=== PATIENT | male | born 1995 | race Caucasian/White ===

== ENCOUNTER 2022-09-20 21:57 | Emergency (ER) | payer OTHER, SELFPAY ==
[2022-09-20 21:59] VITALS: BP 148/99; PULSE 75; RESP 16; TEMP 36.1; O2SAT 99; BMI 30.9
--- NOTE | 2022-09-20 22:07 | EDS_ITS ---
HPI History of Present Illness Chief Complaint: Upper Extremity Injury PFS PFS Medical History no medical history Home Medications oxycodone 5 mg capsule 5 mg PO Q6H PRN pain 3 days #12 caps 09/20/22 [Rx Last Taken Unknown] Allergy/AdvReac Type Severity Reaction Status Date / Time No Known Allergies Allergy Verified 09/20/22 21:59 Surgical History no surgical history Social History Smoking Status: Former smoker EXAM Physical Exam Const Vital Signs: 09/20/22 21:59 Temperature 96.9 F L Temperature Source Temporal Pulse Rate 75 Respiratory Rate 16 Blood Pressure 148/99 H Blood Pressure Mean 115 Pulse Ox 99 [facility] [place] [facility] [place] Medical decision making narrative: HISTORY OF PRESENT ILLNESS: 26-year-old male here for left wrist injury. Patient states while playing baseball he ran into another player injuring his left wrist. He further states he has had no prior injuries to the left wrist. Denies numbness tingling or loss sensation. No swelling over the distal radius. He states the pain is worse with movement and palpation. He denies elbow or shoulder pain. There is no head trauma reported. REVIEW OF SYSTEMS: Pertinent positives: Left wrist pain Pertinent negatives: Numbness, tingling, loss of sensation PHYSICAL EXAM: Nursing triage notes reviewed, Vital signs reviewed Constitutional: please see mdm Lungs: Clear to auscultation, No wheezing or rales. No increased work of breathing, no conversational dyspnea, no accessory muscle use, no nasal flaring. No respiratory distress noted Heart: Regular rate and rhythm, No murmurs, No rubs and No gallops, 2+ distal pulses (radial, femoral, posterior tibial) in all extremities Extremities: No edema Neuro: Intact 4/5 strength (weakness secondary to pain) with ok sign (median), intact finger abduction (ulnar) intact wrist extension (radial n). Intact sensation in the radial, ulnar, and median nerve distributions. Skin: No rash or lesions noted MEDICAL DECISION MAKING: Chief Complaint: Left wrist pain External records reviewed: No recent advanced imaging of the involved extremity Factors affecting care: None Social determinants of health: None History obtained from others: Consults: None ALL IMAGES (IF OBTAINED) HAVE BEEN PERSONALLY REVIEWED AND INTERPRETED BY MYSELF. MDM Narrative: Patient was hemodynamically stable, afebrile, nontoxic-appearing. Neurovascular intact left upper extremity. I considered the following differential diagnosis: Wrist fracture, dislocation, contusion I obtained an x-ray of the left wrist. X-ray was interpreted by myself. X-ray revealed distal radius fracture. Fractures not significantly displaced angulated or comminuted. Patient was placed in a sugar-tong splint. He was given appropriate pain control at home and close orthopedic follow-up. His extremity was neurovascular tact prior to and after splinting. The patient and/or family, caregivers express understanding. The patient and/or family, caregivers agrees with the plan. Total critical care time today provided was at least 0 minutes. This excludes separately billable procedures. Critical care time (if documented) is secondary to the patient having high probability of clinically significant/life threat ening deterioration in the patient's condition which required my urgent intervention. Shared decision making: I will have a discussion with the patient and or visitors regarding risk/benefits of further testing or admission. They will be made aware of of the risk/benefits inherent in this decision they will be given the opportunity to voice understanding. Procedures Upper Extremity Splints Upper Extremity Splint: Orthoglass Splint Fabrication: Pre-fabricated Location: Left Discharge Plan Triage Chief Complaint: Upper Extremity Injury ED Provider: Jan Mantilla Dx/Rx/DC Orders Instructions: Forearm Fracture Ch Prescriptions: New oxycodone 5 mg capsule 5 mg PO Q6H PRN (Reason: pain) 3 Days Qty: 12 0RF Primary Care Provider: Care Physician,No Primary Referrals: Chaim Lang MD [Med Staff - Active Staff] - Activity Restrictions/Additional Instructions: Thank you for trusting us with your care today! Please take Tylenol (2 pills, 650 mg), ibuprofen (2 pills, 400 mg) every 6 hours as needed for pain and fever control. If this does not adequately control your pain please take oxycodone as been prescribed. Please return to the emergency department if your symptoms change or worsen. Specifically if develop loss of sensation, coolness to touch, black or blue discoloration of the involved extremity or if your pain is not controlled by the above regiment. Please follow with the orthopedic surgeon that is been provided for you for further outpatient evaluation and management.
[2022-09-20] MEDS: Acetaminophen 325 MG Tablet 650 MG PO (22:17)
--- NOTE | 2022-09-20 22:20 | RAD_ITS ---
INDICATION: wrist EXAMINATION/TECHNIQUE: X-RAY - LEFT XR Wrist Min 3 Views 3 VIEWS COMPARISON: None FINDINGS: SOFT TISSUES: Radial wrist edema. No soft tissue swelling or gas. No radiopaque foreign body. BONES/JOINTS: Nondisplaced transverse fracture through the radial styloid. Normal alignment. Preservation of the joint space.. No sclerotic or destructive changes observed. RAD/Wrist min 3 Views IMPRESSION: Nondisplaced radial styloid fracture. Electronically Signed: Antonio Becerril MD at 22:59 EDT ,
[2022-09-20 23:18] VITALS: RESP 16
== END 2022-09-20 23:18 | disposition home or self-care (01) ==
PROVIDERS: Emergency Provider Emergency Medicine; Visit Provider Emergency Medicine
DX: S52.502A Unspecified fracture of the lower end of left radius, initial encounter for closed fracture (principal); Z87.891 Personal history of nicotine dependence; Y93.64 Activity, baseball
CPT/HCPCS: 73110; 99283

== ENCOUNTER 2022-09-26 06:06 | Day surgery (SDC) | payer OTHER, SELFPAY ==
[2022-09-26] VITALS (7 sets, daily range): BP systolic 106–135; BP diastolic 64–92; PULSE 69–82; RESP 14–16; TEMP 36.5–37.2; O2SAT 91–98; BMI 31.5
--- NOTE | 2022-09-26 07:04 | HP.PCM_ITS ---
HPI - General HPI Narrative ELIZABETH CABRERA, is a 26 M who presents for open reduction internal fixation of a left distal radius fracture. This is a repairer hairspring type fracture. We discussed pros and cons risks and benefits of going ahead with the surgery. Possible risks include but not limited to stiffness neurovascular injury and other com plications. We discussed these in the office as well. Narcotic counseling done. Patient wished to proceed I marked the left wrist he had no further questions or concerns. No changes to his history and physical exam. MR#: [id number] Acct: [id number] Name:? ELIZABETH CABRERA Rep #: [id number] : 1995 ? ? Provider: Dr. Chaim Lang MD Age/Sex:? 26/M ? ? Location: [facility] – [place] Status: Signed with Addenda ADDENDUM by Dr. Chaim Lang MD on 09/24/22 at 1020 Assessment and Plan Assessment and Plan (1) Distal radial fracture: ?Status:?Acute ?Plan: Also gave EXOS splint for now for comfort. should ice this down for swelling. 09/24/22 1020 <Electronically signed by Chaim Lang MD> Date Chaim Lang MD cc: ? ~* Signed Intake Vital Signs ? 09/20/2320:59 09/24/2308:57 Height 5 ft 11 in 5 ft 11 in Weight: 222 lb 225 lb BMI 30.9 31.4 BP 148/99 H ? Respiration 16 ? Pulse 75 ? Temp 96.9 F L ? Temp Source Temporal ? Pulse Oximetry (%) 99 ? Intake Visit Reasons:?LEFT RADIUS Is patient in pain?: Yes (Left arm) Pain scale (1-10): 1 Allergies No Known Allergies Allergy (Verified 09/24/22 09:57) Medications oxycodone 5 mg capsule 5 mg PO Q6H PRN pain 3 days #12 caps 09/20/22 [Rx Confirmed 09/24/22] acetaminophen 500 mg oral powder packet (Tylenol Extra Strength) 500 mg PO Q6H PRN 09/24/22 [History Confirmed 09/24/22] PFSH Social History? Smoking Status:? Former smoker Smokeless tobacco user:? chewing tobacco alcohol intake:? current alcohol intake frequency: a few times a week HPI LEFT RADIUS Details: Parts of this documentation were recorded by a scribe, this documentation accurately reflects the service provided and the decisions made by me, Dr. Chaim Lang MD 09/24/22 0940. ELIZABETH CABRERA is a 26 year old M here today for left distal radius fracture. rhd. 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 no other injuries or pain. per ED notes 26-year-old male here for left wrist injury.? Patient states while playing baseball he ran into another player injuring his left wrist.? He further states he has had no prior injuries to the left wrist.? Denies numbness tingling or loss sensation.? No swelling over the distal radius.? He states the pain is worse with movement and palpation.? He denies elbow or shoulder pain.? There is no head trauma reported. Ortho Exam General General: Yes no acute distress Neurologic: Yes alert and Yes oriented x3 Psychologic: Yes reasonable and appropriate Right Wrist/Hand Skin/Wound: Yes Swelling and Yes Ecchymosis Left Wrist/Hand Skin/Wound: Yes CDI, Yes Swelling, Yes Ecchymosis, Yes nail intact, Yes capillary refill normal and No erythema Motor: EPL: 4, FDP-2: 4, 1st Dorsal Interosseous: 4 and APB: 4 Sensation: Radial: I, Ulnar: I and Median: I WRIST: good radial pulse, comps soft, no pain hand or elbow. Supplemental Info [facility] Imaging Services [address] [place] [address] Wrist min 3 Views MR#:? [id number] Acct: [id number] Name:? ELIZABETH CABRERA Rep #: [id number] :?? 1995 M 26 ? From:? ? Antonio Becerril MD PCP: Care Physician,No Primary ? Status: REG ER Study: Wrist min 3 Views ? Date of Exam: 09/20/22 Exam# [id number] ? Ordering Dr:? Jan Mantilla DO INDICATION: wrist EXAMINATION/TECHNIQUE: X-RAY - LEFT XR Wrist Min 3 Views 3 VIEWS COMPARISON: None FINDINGS: SOFT TISSUES: Radial wrist edema. No soft tissue swelling or gas.? No radiopaque foreign body. BONES/JOINTS: Nondisplaced transverse fracture through the radial styloid. Normal alignment.? Preservation of the joint space.. No sclerotic or destructive changes observed. RAD/Wrist min 3 Views IMPRESSION: Nondisplaced radial styloid fracture. ? Electronically Signed: Antonio Becerril MD at 22:59 EDT , ? ? CC:? Dr. Jan Mantilla, DO; No Primary? Care Physician? ~ Home Health Occupational Therapist: Signed agree, radial styloid fracture Coding Level of Care Code Off vis,new,level 3 Diagnoses Distal radial fracture? S52.509A Assessment and Plan Assessment and Plan (1) Distal radial fracture: ?Status:?Acute ?Plan: ELIZABETH CABRERA is a 26 year old M here today for left distal radius fracture.? Generally with radial styloid fracture patern given instability and intra articular nature these are recommended for ORIF.? We discussed the pros and cons risks and benefits of nonoperative treatment in a cast versus open reduction internal fixation.? Non op higher chance of displacement and articular malalignment. Many different ways to fix there is pins plates and screws and my preference here to be headless compression screw.? Patient wished to proceed wi th surgery in the form of left distal radius open reduction internal fixation.? We will try to get this on for this week he is otherwise healthy does not require medical clearance.? We will let Citlali and the office know to arrange this urgently. Pros and cons risks and benefits were discussed with the patient including but not limited to infection, pain, stiffness, bleeding, damage to surrounding structures, neurovascular injury, recurrence or retear, failure or wear of hardware or fixation, instability, fracture, deep vein thrombosis and pulmonary embolism, anesthetic risks, , patient dissatisfaction, need for further surgery and other risks.? Patient understood and wished to proceed with surgery, and signed the informed consent documentation. [facility] Medical History (Updated 09/25/22 @ 11:29 by Nandini Myers) Back pain Chewing tobacco nicotine dependence Former smoker History of edema Home Medications oxycodone 5 mg capsule 5 mg PO Q6H PRN pain 3 days #12 caps 09/20/22 [Rx Last Taken Unknown] acetaminophen 500 mg capsule 1,000 mg PO Q6H PRN Pain 09/25/22 [History Last Taken Unknown] Allergy/AdvReac Type Severity Reaction Status Date / Time No Known Allergies Allergy Verified 09/26/22 06:45 Social History Smoking Status: Current some day smoker tobacco type: smokeless tobacco Smokeless tobacco user: chewing tobacco alcohol intake: current alcohol intake frequency: a few times a week
[2022-09-26] MEDS: Lactated Ringers 1,000 ML 15 ML IV (07:09)
[2022-09-26] MEDS: Cefazolin 2 GM in 0.9% Normal Saline 100 ML IV (07:30)
--- NOTE | 2022-09-26 07:53 | RAD_ITS ---
STUDY: X-RAY - LEFT WRIST REASON FOR EXAM: Male, 26 years old. ORIF DISTAL RADIUS TECHNIQUE: 2 intraoperative view(s) of the wrist were obtained. COMPARISON: None. FINDINGS: Intraoperative imaging provided for open reduction internal fixation of the distal radial styloid fracture. There is good alignment. RAD/Wrist min 3 Views IMPRESSION: Intraoperative imaging provided for ORIF of the distal radial styloid fracture. There is good alignment. Electronically Signed: Isaias Bang MD at 9:22 EDT ,
[2022-09-26] MEDS: Bupivacaine 0.25% 30 ML Vial (08:00)
--- NOTE | 2022-09-26 08:30 | PCM.OPRPT ---
Problems Associated Problem List Diagnoses (1) Distal radial fracture: Report of Operation Date of Procedure: 09/26/22 Pre-Operative Diagnosis: left distal radius fracture Post-Operative Diagnosis: same Surgery/Procedure Performed:: ORIF left distal radius Surgeon: Chaim Lang Type of Anesthesia: General and Local Anesthesiologist: Esvin Rosa Estimated Blood Loss (mL): 50 Description of Procedure: Patient brought to the operating room theater. Placed supine on the table. Hand table to the patient's left side. Tourniquet applied to the left upper extremity appropriately padded. SCDs on the legs. 2 g IV Ancef administered prior to the start of the case. General anesthesia induced. Preoperative timeout performed to confirm the site patient and the surgery. Bed turned 90 degrees. Began by taking fluoroscopy AP and lateral to confirm appropriate pin entry position and reduction. I passed the pin for the cannulated Synthes headless compression screw. Passed this at the tip of the styloid down the center of the distal radius on lateral xray, across the fracture site in an oblique fashion. Passed a secondary wire to hold the fracture in place. Made a percutaneous stab incision at the first wire. Overdrilled the near and into the far aspect past the fracture site. This measured 52 mm therefore I selected the longest 40 mm screw. This was 3.0 mm in diameter. I passed this across the fracture site and slightly buried the head of the screw and achieved good and appropriate compression of the fracture site and anatomic alignment to the articular surface. Wires removed. Wound thoroughly irrigated. Some mild bleeding at the end Controlled with pressure. Wound thoroughly irrigated skin closed with 3-0 nylon suture. Skin cleaned with wet and dry dressing 8 cc of quarter percent bupivacaine around the incision site. Adaptic 4 x 4 gauze and a sterile cast padding followed by a volar fiberglass prefabricated splint with the hand and wrist in neutral overwrapped with Matty bandage. Patient woken up from the general anesthetic transferred off the operating table and taken to postanesthetic care unit in stable condition. No complications. All sponge needle instrument counts were correct. Plan for the patient discharged home according to day surgery criteria. FU 2 days . Complications none Admit VTE Documentation VTE Present on Admission: No VTE Mechan Device Prophylaxis: SCD's VTE Pharm Prophylaxis ordered?: No Reason prophylaxis not ordered:: Treatment Not Indicated Procedures Musculoskeletal [id number]: Other Procedure See Report
--- NOTE | 2022-09-26 08:37 | DCINST_ITS ---
Discharge Instructions Diet Discharge Diet: No restrictions Activity Ice area for (Minutes): 10 Keep extremity elevated above heart level: Operative Extremity Dressing / Incision Call your doctor if your incision/area has: Continuous Slow Oozing, Sudden Increased Bleeding, Increased Pain/ Swelling, Increased Redness, Foul Smelling Discharge and Swelling at the incision site Remove Dressing in: leave in place till F/U Follow Up Care Please Follow Up With: Chaim Lang MD When: 2 days Test Results: Test results from this visit will be discussed in further detail at your follow- up appointment, if applicable. Discharge Plan Admission Attending Provider: Chaim Lang Primary Care Provider: Care Physician,No Primary Instructions Patient Instructions: Wrist Fracture Discharge Orders/Prescriptions Prescriptions: New oxycodone-acetaminophen [Percocet] 5-325 mg tablet 1 tab PO Q4H MDD 6 PRN (Reason: pain) 5 Days Qty: 20 0RF No Action oxycodone 5 mg capsule 5 mg PO Q6H PRN (Reason: pain) 3 Days Qty: 12 0RF acetaminophen 500 mg Capsule 1,000 mg PO Q6H PRN (Reason: Pain) Referrals / Follow Up: Chaim Lang MD [Med Staff - Active Staff] - Care Physician,No Primary [Primary Care Provider] - Disposition Disposition (needs filled in before D/C Order can be placed): Home, Self Care
== END 2022-09-26 10:03 | disposition home or self-care (01) ==
LOC: SDC 06:07 → AC 06:08
PROVIDERS: Referring Provider Orthopaedic Surgery Sports Medicine; Visit Provider Orthopaedic Surgery Sports Medicine
PROC: (CPT 25607; principal; 2022-09-26 07:10)
DX: S52.515A Nondisplaced fracture of left radial styloid process, initial encounter for closed fracture (principal); F17.220 Nicotine dependence, chewing tobacco, uncomplicated; X58.XXXA Exposure to other specified factors, initial encounter
CPT/HCPCS: 25607; 01830; 73110; 76000; C1713; J7120; J2405